=== PATIENT | male | born 1970 | race Caucasian/White ===

== ENCOUNTER 2023-09-09 17:06 | Emergency (ER) | payer MEDICAID, SELFPAY ==
[2023-09-09 17:08] VITALS: BP 175/119; PULSE 92; RESP 14; TEMP 36.7; O2SAT 98; BMI 38.1
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
--- NOTE | 2023-09-09 18:32 | RAD_ITS ---
STUDY: X-RAY - LEFT SHOULDER REASON FOR EXAM: Female, 53 years old. Injury/Pain TECHNIQUE: 4 view(s) of the shoulder. COMPARISON: None. FINDINGS: Normal glenohumeral articulation. 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 Normal acromion. Normal humeral head and visualized proximal humerus. The soft tissue structures are unremarkable. There is no demonstrated fracture. Normal visualized pulmonary apex. RAD/Shoulder min 2 Views IMPRESSION: Minimal degenerative disease, otherwise unremarkable x-ray examination of the shoulder. Electronically Signed: Shannan Khan MD at 19:16 EST ,
--- OUTSIDE RECORDS SUMMARY | 2023-09-09 18:55 | XMS RPT_ITS | CCD ---
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 and content) Scheduled Medication Order 12/30/2022 12/31/2022 01/01/2023 diphenhydrAMINE (BENADryl) injection 25 mg (COMPLETED) 25 mg, IntraVENous, Once, On Rosa 5/4/23 at 1310, For 1 dose 1346 (Given - Provid er: Medina Lopez RN) ketorolac (Toradol) injection 15 mg (COMPLETED) 15 mg, IntraVENous, Once, On Rosa 01/01/23 at 1310, For 1 dose 1346 (Given - Provid er: Medina Lopez RN) morphine sulfate (PF) injection 4 mg (COMPLETED) 4 mg, IntraVENous, Once, On Rosa 01/01/23 at 1520, For 1 dose, If oral and IV narcotics ordered, use oral first and only use IV if oral is ineffective or cannot take oral. Do Not give oral and IV within 1 hour of each other unless specifically ordered. 1541 (Given - Provid er: Sandra Mcbride) ondansetron (Zofran) injection 4 mg (COMPLETED) 4 mg, IntraVENous, Once, On Rosa 01/01/23 at 1520, For 1 dose 1541 (Given - Provid er: Sandra Mcbride) prochlorperazine (Compazine) injection 10 mg (COMPLETED) 10 mg, IntraVENous, Once, On Rosa 01/01/23 at 1310, For 1 dose, Give if unable to tolerate po. 1346 (Given - Provid er: Medina Lopez RN) sodium chloride 0.9 % bolus 500 mL (COMPLETED) 500 mL, IntraVENous, at 500 mL/hr, Administer over 1 Hours, Once, On Rosa 01/01/23 at 1310, For 1 dose 1347 (New Bag - Prov ider: Medina Lopez RN)1447 (Stopped - Provider: Medina Lopez RN) Care Teams (unrecognized sec tion and content) (unrecognized sect ion and content) No Status Records FoundNo Status Records FoundNo Status Records FoundNo Status Records Found INFORMATION SOURCE (unrecogn ized section and content) DATE CREATED AUTHOR AUTHOR'S ORGANIZ ATION 03/03/2023 [facility] DATE CREATED AUTHOR AUTHOR'S ORGANIZ ATION 03/11/2023 [facility] DATE CREATED AUTHOR AUTHOR'S ORGANIZ ATION 06/01/2023 [facility] Source Comments (unrecognize d section and content) In the event this informatio n is protected by the Federal Confidentiality of Alcohol and Drug Abuse Patient Records regulations: The Federal rules restrict any use of the information to criminally investigate or prosecute any alcohol or drug abuse patient.[facility] FOR RECORDS PERTAINING TO PATIENTS WHO ARE OR HAVE BEEN ENROLLED IN A CHEMICAL DEPENDENCY/SUBSTANCEABUSE PROGRAM, SOME INFORMATION MAY BE OMITTED. This clinical summary was aggregated from multiple sources. Caution should be exercised in using it in the provision of clinical care. This summary normalizes information from multiple sources, and as a consequence, information in this document may materially change the coding, format and clinical context of patient data. In addition, data may be omitted in some cases. CLINICAL DECISIONS SHOULD BE BASED ON THE PRIMARY CLINICAL RECORDS. [facility] [employer] [facility]. provides no warranty or guarantee of the accuracy or completeness of information in this document.
== END 2023-09-09 19:40 | disposition home or self-care (01) ==
PROVIDERS: Emergency Provider Emergency Medicine; Visit Provider Emergency Medicine
DX: S16.1XXA Strain of muscle, fascia and tendon at neck level, initial encounter (principal); S46.912A Strain of unspecified muscle, fascia and tendon at shoulder and upper arm level, left arm, initial encounter; F17.210 Nicotine dependence, cigarettes, uncomplicated; E66.9 Obesity, unspecified; V43.52XA Car driver injured in collision with other type car in traffic accident, initial encounter
CPT/HCPCS: 73030; 99282